=== PATIENT | male | born 1970 | race Two or more races ===

== ENCOUNTER 2018-10-28 21:58 | Emergency (ER) | payer OTHER ==
[~2018-10-28] VITALS: Ht 165.1 cm; Wt 87.5 kg
--- NOTE | 2018-10-28 22:14 | NUR ---
BIBRA. C/O "WAS FOUND PASSED OUT BY THE STREET, +ETOH" -SOB NOTED. -N/V -DIZZY. AOX4. VSS. PT VERBAL. EXPLAINED THAT HE DRANK TOO MUCH. HX SYNCOPE AND HTN.
--- NOTE | 2018-10-29 02:17 | NUR ---
Patient is resting comfortably in bed with eyes closed. Easily aroused. VSS
[2018-10-29 04:46] VITALS: BP 122/82
== END 2018-10-29 06:02 | disposition home or self-care (01) ==
LOC: ER 22:01
DX: F10.129 Alcohol abuse with intoxication, unspecified (principal); R41.82 Altered mental status, unspecified; I10 Essential (primary) hypertension; Y90.9 Presence of alcohol in blood, level not specified
CPT/HCPCS: 70450-TC; 82962-TC

== ENCOUNTER 2019-07-09 11:54 | Emergency (ER) | payer OTHER ==
[~2019-07-09] VITALS: Ht 167.6 cm; Wt 79.4 kg
--- NOTE | 2019-07-09 11:58 | NUR ---
PT BIBRA TO ER BED 14 PT WAS FOUND OUTSIDE HIS APARTMENT SLEEPING, APPEARS INTOXICATED. PER EMS PT IS SUICIDAL. PLACED ON MONITOR. VSS. AWAITING MD HUGHES.
--- NOTE | 2019-07-09 12:00 | NUR ---
DR TRAN AT BEDSIDE FOR EVAL.
[2019-07-09 12:29] LABS: BASOPHILS # (AUTO) 0.1 /CMM (0.0-0.2); EOSINOPHILS % (AUTO) 8.8 % (0.0-6.0); HEMATOCRIT 36 % (39-51); HEMOGLOBIN 11.9 g/dL (13.5-17.5); LYMPHOCYTES % (AUTO) 32.2 % (20.0-44.0); MEAN CORPUSCULAR HGB CONC 33 g/dl (31.0-36.0); MEAN CORPUSCULAR VOLUME 93 fL (80-96); MONOCYTES # (AUTO) 0.4 /CMM (0.1-1.30); NEUTROPHILS # (AUTO) 3.3 /CMM (1.8-8.9); PLATELET COUNT (AUTO) 180 /CMM (150-450); RED BLOOD CELL COUNT(AUTO) 3.85 MIL/uL (4.5-6.0); WHITE BLOOD COUNT (AUTO) 6.3 K/uL (4.3-11.0)
[2019-07-09 12:35] LABS: CALCIUM, SERUM 8.2 mg/dL (8.5-10.1); CARBON DIOXIDE 32 mmol/L (21-32); CHLORIDE 102 mmol/L (98-107); GLUCOSE 136 mg/dL (74-106); POTASSIUM 3.4 mmol/L (3.5-5.1); SODIUM SERUM 144 mmol/L (136-145); UREA NITROGEN, BLOOD 13 mg/dL (7-18)
--- NOTE | 2019-07-09 12:40 | NUR ---
UNABLE TO PROVIDE URINE SAMPLE AT THIS TIME. RUSS TRAN AWARE.
[2019-07-09 12:43] LABS: ALANINE AMINOTRANSFERASE 32 U/L (12-78); ALBUMIN 3.3 g/dL (3.4-5.0); ALCOHOL, BLOOD 382 mg/dL (0-0); ALKALINE PHOSPHATASE 157 U/L (46-116); ASPARTATE AMINOTRANSFERASE 32 U/L (15-37); BILIRUBIN,TOTAL 0.1 mg/dL (0.2-1.0); TOTAL PROTEIN, SERUM 6.7 g/dL (6.4-8.2)
[2019-07-09 12:44] LABS: ACETAMINOPHEN < 2 ug/ml (10-30); SALICYLATE < 2.8 mg/dL (2.8-20.0)
--- NOTE | 2019-07-09 17:42 | NUR ---
PT RESTING IN BED. ON MONITOR. STABLE VITALS. WILL CONTINUE TO MONITOR.
[2019-07-09 17:48] LABS: APPEARANCE,URINE Clear (CLEAR); BILIRUBIN,URINE Negative (NEGATIVE); BLOOD, URINE Negative Ery/uL (NEGATIVE); COLOR,URINE Yellow (YELLOW); KETONES,URINE Negative (NEGATIVE); LEUKOCYTE ESTERASE ,URINE Negative (NEGATIVE); NITRITE, URINE Negative (NEGATIVE); PROTEIN,URINE Negative (NEGATIVE); UGLUCOSE Negative (NEGATIVE); UROBILINOGEN,URINE 0.2 EU/dL (0.2)
--- NOTE | 2019-07-09 19:14 | NUR ---
REPORT TO FOUNDATION DRILL OPERATOR HELPER NURSE CHRISTA EDWARDS FOR MARIO.
--- NOTE | 2019-07-09 19:28 | NUR ---
ASSESSED PT ON BED AWAKE AND ALERT, NOT IN RESPIRATORY DISTRESS, V/S STABLE, KEPT RESTED AND COMFORTABLE, WILL CONTINUE TO MONITOR.
--- NOTE | 2019-07-10 00:57 | NUR ---
PT IS AWAKE ON BED, STATES HE IS STILL FEELING SUICIDAL AND WANT TO RUN THRU TRAFFIC. NOT IN RESPIRATORY DISTRESS, V/S STABLE, WILL CONTINUE TO MONITOR, FOOD PROVIDED.
--- NOTE | 2019-07-10 03:10 | NUR ---
Pt accepted to [facility] by Dr Brandt. # for report [phone]. Unit 2
--- NOTE | 2019-07-10 03:15 | NUR ---
CALLED CALL THE CAR FOR BLS TRANSPORT TO [facility]. ETA 60-90 MIN [facility]
--- NOTE | 2019-07-10 03:18 | NUR ---
REPORT GIVEN TO JERRY JUARES OF [facility] FOR [facility].
--- NOTE | 2019-07-10 05:19 | NUR ---
CALLED AMBULANCE COMPANY REQUESTING UPDATED ETA SINCE THEY ARE 30 MIN LATE, STATED THEY HAD A SLIGHT DELAY WITH THEIR PREVIOUS PT AND WILL BE ARRIVING IN ABOUT 10 MIN.
[2019-07-10 06:14] VITALS: BP 140/98
== END 2019-07-10 06:17 ==
LOC: ER 11:57
DX: F10.129 Alcohol abuse with intoxication, unspecified (principal); I10 Essential (primary) hypertension; Y90.8 Blood alcohol level of 240 mg/100 ml or more
CPT/HCPCS: 36415 ×2; 80048; 80076; 80305; 80307 ×2; 80329; 81001; 85025; 99285; G0480; 81000-TC

== ENCOUNTER 2019-09-06 13:55 | Emergency (ER) | payer OTHER ==
[~2019-09-06] VITALS: Ht 165.1 cm; Wt 81.6 kg
--- NOTE | 2019-09-06 16:45 | NUR ---
BIBS WALKED IN TO ER BED 14. AAOX4. NOT IN RESP DISTRESS. AMBUALTORY ON STEADY GAIT. CAME IN MEDICATION REFILL AND ADMITS TO DRINKING EARLIER THIS MORNING. MD WAS AT BEDSIDE FOR SAUL.
--- NOTE | 2019-09-06 16:55 | NUR ---
Patient discharged to home in stable condition. Written and verbal after care instructions given. Patient verbalizes understanding of instruction. Pt ambulatory with a steady gait. Pt left w/o sighning homeless waiver and aci.
[2019-09-06 16:57] VITALS: BP 116/88
== END 2019-09-06 17:02 | disposition home or self-care (01) ==
LOC: ER 14:01
DX: F10.129 Alcohol abuse with intoxication, unspecified (principal); I10 Essential (primary) hypertension; Z59.0 Homelessness; Y90.9 Presence of alcohol in blood, level not specified

== ENCOUNTER 2019-09-21 05:05 | Emergency (ER) | payer OTHER ==
[~2019-09-21] VITALS: Ht 165.1 cm; Wt 79.4 kg
--- NOTE | 2019-09-21 05:42 | NUR ---
PT BIBSELF C/O SUICIDAL AND HOMICIDAL IDEATION WITH PLAN TO SHOOT SELF WITH GUN. PT STATES HE CURRENTLY DOES NOT HAVE ACCESS TO GUN. PT AAOX4. CALM AND COOPERATIVE. VITAL SIGNS STABLE. RESPIRATIONS EVEN AND UNLABORED. SKIN WARM AND INTACT. AMBULATORY WITH STEADY GAIT. NO ACUTE DISTRESS NOTED AT THIS TIME. SITTER AT BEDSIDE. SUICIDE PRECAUTIONS INITIATED, PT PLACED IN GOWN AND BELONGINGS PLACED IN PATIENT LOCKER. WILL CONTINUE TO MONITOR
[2019-09-21 05:50] LABS: BASOPHILS # (AUTO) 0.2 /CMM (0.0-0.2); BASOPHILS % (AUTO) 2.2 % (0.0-2.0); EOSINOPHILS % (AUTO) 8.7 % (0.0-6.0); HEMATOCRIT 42 % (39-51); HEMOGLOBIN 13.5 g/dL (13.5-17.5); LYMPHOCYTES # (AUTO) 1.9 /CMM (0.8-4.8); LYMPHOCYTES % (AUTO) 23.6 % (20.0-44.0); MEAN CORPUSCULAR HGB CONC 33 g/dl (31.0-36.0); MEAN CORPUSCULAR VOLUME 95 fL (80-96); MONOCYTES # (AUTO) 0.7 /CMM (0.1-1.30); MONOCYTES % (AUTO) 8.6 % (2.0-12.0); NEUTROPHILS # (AUTO) 4.6 /CMM (1.8-8.9); NEUTROPHILS % (AUTO) 56.9 % (43.0-81.0); PLATELET COUNT (AUTO) 256 /CMM (150-450); RED BLOOD CELL COUNT(AUTO) 4.37 MIL/uL (4.5-6.0)
[2019-09-21 06:10] LABS: ALBUMIN 4.1 g/dL (3.4-5.0); BILIRUBIN,DIRECT 0.1 mg/dL (0.0-0.2); BILIRUBIN,TOTAL 0.5 mg/dL (0.2-1.0); CALCIUM, SERUM 8.9 mg/dL (8.5-10.1); CREATININE 0.9 mg/dL (0.6-1.3); POTASSIUM 3.7 mmol/L (3.5-5.1)
[2019-09-21 06:46] LABS: SALICYLATE 0.2 mg/dL (2.8-20.0)
[2019-09-21 07:38] LABS: APPEARANCE,URINE Slightly Cloudy (CLEAR); BILIRUBIN,URINE Negative (NEGATIVE); BLOOD, URINE Negative Ery/uL (NEGATIVE); COLOR,URINE Yellow (YELLOW); KETONES,URINE Negative (NEGATIVE); LEUKOCYTE ESTERASE ,URINE Negative (NEGATIVE); NITRITE, URINE Negative (NEGATIVE); PROTEIN,URINE 30 mg/dl (NEGATIVE); UGLUCOSE Negative (NEGATIVE); UROBILINOGEN,URINE 0.2 EU/dL (0.2)
--- NOTE | 2019-09-21 07:39 | NUR ---
PATIENT IN BED ASLEEP, EASILY AROUSABLE BY VOICE, HOOKED TO MONITOR, SITTER AT BEDSIDE FOR SAFETY, WILL CONTINUE TO MONITOR ACCORDINGLY
[2019-09-21 08:04] LABS: RBC,URINE 0-2 /HPF (0-2); WBC,URINE 0-2 /HPF (0-3)
[2019-09-21 08:05] LABS: BACTERIA,URINE Few /HPF (None Seen); SQUAMOUS EPITHELIAL CELL,UR Rare /HPF (None Seen)
--- NOTE | 2019-09-21 08:27 | NUR ---
BREAKFAST TRAY PROVIDED, TOLERATING PO WELL
--- NOTE | 2019-09-21 09:32 | NUR ---
ADARSH MORALEZ CALLED FOR EVAL
--- NOTE | 2019-09-21 10:22 | NUR ---
PATIENT IN BED AWAKE, HOOKED TO MONITOR, SITTER AT BEDSIDE FOR SAFETY, WILL CONTINUE TO MONITOR ACCORDINGLY
--- NOTE | 2019-09-21 12:42 | NUR ---
LUNCH TRAY PROVIDED, TOLERATING PO WELL.
--- NOTE | 2019-09-21 14:42 | NUR ---
PATIENT IN BED ASLEEP, EASILY AROUSABLE BY VOICE, HOOKED TO MONITOR, SITTER AT BEDSIDE FOR SAFETY, WILL CONTINUE TO MONITOR ACCORDINGLY
[2019-09-21 15:22] VITALS: BP 129/78
--- NOTE | 2019-09-21 16:02 | NUR ---
PATIENT C/O BILATERAL LOWWER EXTREMITY PAIN, MADE AWARE
[2019-09-21] MEDS ORDERED: ACETAMINOPHEN ES 500 MG TABLET PO ONE (16:30)
[2019-09-21] MEDS ORDERED: ACETAMINOPHEN ES 500 MG TABLET ONE (16:35)
--- NOTE | 2019-09-21 23:01 | NUR ---
PT ACCEPTED AT [facility]. NUMBER FOR REPORT: [phone] JAY IS [employer] VENDOR ACCEPTING DR. NUNEZ
--- NOTE | 2019-09-21 23:03 | NUR ---
Call the Car called for transport. ETA 60-90 minutes .
--- NOTE | 2019-09-21 23:06 | NUR ---
REPORT GIVEN TO JAY EDWARDS FOR CONTINUATION OF CARE.
--- NOTE | 2019-09-22 01:11 | NUR ---
[facility] AT BEDSIDE FOR TRANSPORT TO [facility].
== END 2019-09-22 01:15 ==
LOC: ER 05:05
DX: R45.851 Suicidal ideations (principal); R45.850 Homicidal ideations; I10 Essential (primary) hypertension
CPT/HCPCS: 36415; 80048; 80076; 80305; 80307; 80329; 81001; 85025; 99285; G0480; 81000-TC

== ENCOUNTER 2019-11-13 14:39 | Emergency (ER) | payer OTHER ==
[~2019-11-13] VITALS: Ht 165.1 cm; Wt 99.8 kg
--- NOTE | 2019-11-13 15:25 | NUR ---
PT SELF PRESENTS TO ED. AMBULATORY TO ER BED 15. C/O DEPRESSION W/ SUICIDAL INTENT TO "RUN IN FRONT OF A CAR." PT IS COOPERATIVE. PREVIOUS ED VISIT FOR SAME COMPLAINT. STABLE VITALS. SECURITY CALLED FOR WANDING.
--- NOTE | 2019-11-13 15:30 | NUR ---
called security for wanding
--- NOTE | 2019-11-13 15:32 | NUR ---
security at bedside and wanded the patient
--- NOTE | 2019-11-13 15:45 | NUR ---
ER PHLEB AT BEDSIDE FOR BLOOD DRAW.
[2019-11-13 15:50] LABS: APPEARANCE,URINE Clear (CLEAR); BILIRUBIN,URINE Negative (NEGATIVE); BLOOD, URINE Negative Ery/uL (NEGATIVE); COLOR,URINE Yellow (YELLOW); KETONES,URINE Trace (NEGATIVE); LEUKOCYTE ESTERASE ,URINE Negative (NEGATIVE); NITRITE, URINE Negative (NEGATIVE); PH,URINE 5.5 (5.0-8.0); PROTEIN,URINE Negative (NEGATIVE); UGLUCOSE Negative (NEGATIVE); UROBILINOGEN,URINE 0.2 EU/dL (0.2)
[2019-11-13 15:50] LABS: BASOPHILS % (AUTO) 0.9 % (0.0-2.0); EOSINOPHILS % (AUTO) 7.5 % (0.0-6.0); HEMATOCRIT 39 % (39-51); HEMOGLOBIN 12.8 g/dL (13.5-17.5); LYMPHOCYTES # (AUTO) 1.2 /CMM (0.8-4.8); LYMPHOCYTES % (AUTO) 26.2 % (20.0-44.0); MEAN CORPUSCULAR HGB CONC 33 g/dl (31.0-36.0); MEAN CORPUSCULAR VOLUME 98 fL (80-96); MONOCYTES # (AUTO) 0.5 /CMM (0.1-1.30); MONOCYTES % (AUTO) 10.6 % (2.0-12.0); NEUTROPHILS # (AUTO) 2.5 /CMM (1.8-8.9); NEUTROPHILS % (AUTO) 54.8 % (43.0-81.0); PLATELET COUNT (AUTO) 250 /CMM (150-450); RED BLOOD CELL COUNT(AUTO) 3.97 MIL/uL (4.5-6.0); WHITE BLOOD COUNT (AUTO) 4.5 K/uL (4.3-11.0)
[2019-11-13 15:59] LABS: CALCIUM, SERUM 8.7 mg/dL (8.5-10.1); CARBON DIOXIDE 29 mmol/L (21-32); CHLORIDE 104 mmol/L (98-107); CREATININE 0.9 mg/dL (0.6-1.3); GLUCOSE 93 mg/dL (74-106); POTASSIUM 3.3 mmol/L (3.5-5.1); SODIUM SERUM 142 mmol/L (136-145); UREA NITROGEN, BLOOD 12 mg/dL (7-18)
[2019-11-13 16:05] LABS: ALANINE AMINOTRANSFERASE 26 U/L (12-78); ALBUMIN 3.5 g/dL (3.4-5.0); ALCOHOL, BLOOD 209 mg/dL (0-0); ALKALINE PHOSPHATASE 172 U/L (46-116); ASPARTATE AMINOTRANSFERASE 52 U/L (15-37); BILIRUBIN,DIRECT 0.1 mg/dL (0.0-0.2); BILIRUBIN,TOTAL 0.3 mg/dL (0.2-1.0); TOTAL PROTEIN, SERUM 7.5 g/dL (6.4-8.2)
[2019-11-13 16:06] LABS: ACETAMINOPHEN < 2 ug/ml (10-30); SALICYLATE < 2.8 mg/dL (2.8-20.0)
[2019-11-13 16:18] LABS: BACTERIA,URINE Few /HPF (None Seen); RBC,URINE 0-2 /HPF (0-2); SQUAMOUS EPITHELIAL CELL,UR Few /HPF (None Seen); WBC,URINE 0-2 /HPF (0-3)
--- NOTE | 2019-11-13 16:25 | NUR ---
Sales Operations Specialist while rounding was informed that this patient would like to receive voluntary hospitalization treatment at [facility]. This SW informed Fabian at [facility]. Fabian will be holding a bed for this patient. This SW was unable to speak with the patient before end of day. This SW informed [facility] about holding a bed. SW unable to fax clinicals as they were not available before the end of this SW day.
[2019-11-13] MEDS ORDERED: POTASSIUM CHLORIDE 20 MEQ TAB.PRT.SR PO ONE ×2 (21:42→22:00)
[2019-11-14 01:06] LABS: POTASSIUM 3.5 mmol/L (3.5-5.1)
--- NOTE | 2019-11-14 01:23 | NUR ---
PATIENT IS ACCEPTED BY [facility] BY DR. CLEANING # FOR REPORT [phone] TO UNIT 2.
--- NOTE | 2019-11-14 01:28 | NUR ---
[facility].
--- NOTE | 2019-11-14 01:37 | NUR ---
[facility]TT CALL THE CAR CALLED FOR TRANSPORT. TRIP# [id number]. PENDING ETA.
--- NOTE | 2019-11-14 01:49 | NUR ---
[facility] ETA [phone]
--- NOTE | 2019-11-14 05:05 | NUR ---
[facility] CALL THE CAR CALLED FOR UPDATE. NEW ETA [phone]
--- NOTE | 2019-11-14 05:19 | NUR ---
NOTIFIED [facility] THAT ETA FOR PATIENT'S AMBULANCE PICKUP IS AT [phone]
[2019-11-14 07:00] VITALS: BP 139/76
--- NOTE | 2019-11-14 08:12 | NUR ---
PATIENT A/OX4, BREATHING EVEN AND UNLABORED, NO SOB NOTED, AMBULATORY WITH STEADY GAIT. REPORT GIVEN TO MATERIAL PREPARATION WORKER. BELONGINGS GIVEN TO EMT. PATIENT LEFT FOR [facility] IN STABLE CONDITION.
== END 2019-11-14 08:13 ==
LOC: ER 14:41
DX: R45.851 Suicidal ideations (principal); I10 Essential (primary) hypertension
CPT/HCPCS: 36415 ×2; 80048; 80076; 80305; 80307 ×2; 80329; 81001; 84132; 85025; 99285; G0480; 81000-TC

== ENCOUNTER 2019-12-10 08:08 | Emergency (ER) | payer OTHER ==
[~2019-12-10] VITALS: Ht 165.1 cm; Wt 100.2 kg
--- NOTE | 2019-12-10 08:08 | NUR ---
PT BIB SELF C/O SI "I WANT TO RUN IN FRONT OF THE CAR" PT IS AAOX4, NOT IN RESPIRATORY DISTRESS, V/S STABLE, KEPT RESTED AND COMFORTABLE. WILL CONTINUE TO MONITOR. SITTER AT BEDSIDE.
--- NOTE | 2019-12-10 08:25 | NUR ---
SEEN AND EXAMINED BY .
--- NOTE | 2019-12-10 08:29 | NUR ---
SECURITY AT BEDSIDE FOR WANDING.
--- NOTE | 2019-12-10 08:30 | NUR ---
URINE SPECIMEN COLLECTED AND SENT TO LAB.
--- NOTE | 2019-12-10 08:32 | NUR ---
ER PHLEB AT BEDSIDE FOR BLOOD DRAW.
--- NOTE | 2019-12-10 08:44 | NUR ---
SW AT BEDSIDE FOR EVAL.
[2019-12-10 09:07] LABS: APPEARANCE,URINE SL CLOUDY (CLEAR); BILIRUBIN,URINE NEGATIVE (NEGATIVE); BLOOD, URINE NEGATIVE Ery/uL (NEGATIVE); COLOR,URINE YELLOW (YELLOW); KETONES,URINE NEGATIVE (NEGATIVE); LEUKOCYTE ESTERASE ,URINE NEGATIVE (NEGATIVE); NITRITE, URINE NEGATIVE (NEGATIVE); PROTEIN,URINE TRACE mg/dl (NEGATIVE); UGLUCOSE NEGATIVE (NEGATIVE)
[2019-12-10 09:10] LABS: BASOPHILS # (AUTO) 0.1 /CMM (0.0-0.2); BASOPHILS % (AUTO) 0.8 % (0.0-2.0); HEMATOCRIT 42 % (39-51); HEMOGLOBIN 13.9 g/dL (13.5-17.5); LYMPHOCYTES # (AUTO) 1.3 /CMM (0.8-4.8); LYMPHOCYTES % (AUTO) 21.1 % (20.0-44.0); MEAN CORPUSCULAR HGB CONC 33 g/dl (31.0-36.0); MEAN CORPUSCULAR VOLUME 98 fL (80-96); MONOCYTES # (AUTO) 0.3 /CMM (0.1-1.30); MONOCYTES % (AUTO) 4.1 % (2.0-12.0); NEUTROPHILS # (AUTO) 4.5 /CMM (1.8-8.9); PLATELET COUNT (AUTO) 184 /CMM (150-450); RED BLOOD CELL COUNT(AUTO) 4.33 MIL/uL (4.5-6.0); WHITE BLOOD COUNT (AUTO) 6.4 K/uL (4.3-11.0)
[2019-12-10 09:22] LABS: CALCIUM, SERUM 8.2 mg/dL (8.5-10.1); CARBON DIOXIDE 24 mmol/L (21-32); CHLORIDE 100 mmol/L (98-107); GLUCOSE 111 mg/dL (74-106); SODIUM SERUM 138 mmol/L (136-145); UREA NITROGEN, BLOOD 10 mg/dL (7-18)
[2019-12-10 09:30] LABS: ACETAMINOPHEN < 10 ug/ml (10-30); ALANINE AMINOTRANSFERASE 47 U/L (12-78); ALBUMIN 3.6 g/dL (3.4-5.0); ALCOHOL, BLOOD 254 mg/dL (0-0); ALKALINE PHOSPHATASE 135 U/L (46-116); ASPARTATE AMINOTRANSFERASE 99 U/L (15-37); BILIRUBIN,DIRECT 0.2 mg/dL (0.0-0.2); BILIRUBIN,TOTAL 0.5 mg/dL (0.2-1.0); SALICYLATE 1.1 mg/dL (2.8-20.0); TOTAL PROTEIN, SERUM 7.6 g/dL (6.4-8.2)
[2019-12-10 09:31] LABS: BACTERIA,URINE Few /HPF (None Seen); RBC,URINE 0-1 /HPF (0-2); SQUAMOUS EPITHELIAL CELL,UR Few /HPF (None Seen); WBC,URINE 0-1 /HPF (0-3)
--- NOTE | 2019-12-10 10:55 | NUR ---
This SW faxed over patient information to [facility]
--- NOTE | 2019-12-10 11:43 | NUR ---
ANGELO FROM [facility] CALLED ACCEPTED AT [facility] ACCEPTING IS [facility] [phone] PLEASE CALL FOR REPORT.
--- NOTE | 2019-12-10 11:53 | NUR ---
CALLED [facility] [phone] WILL CALL US WITH TRANSPORT INFO AND TIME CONFIRMATION #[id number]
--- NOTE | 2019-12-10 12:11 | NUR ---
REPORT GIVEN TO JERRY KAUR FOR [facility].
--- NOTE | 2019-12-10 12:12 | NUR ---
[facility] CALLED BACK TRANSPORT [facility] WILL BE HERE @[phone]
--- NOTE | 2019-12-10 12:38 | NUR ---
This SW was contacted by Fabian from [facility]. Patient has been accepted to [facility]. Patient assigned to [facility].
--- NOTE | 2019-12-10 12:42 | NUR ---
Engineering Teacher met with the patient at bedside. Per MD note, "49-year-old male with a previous psychiatric history presents the emergency department complaining of suicidal ideation. Patient states that he wants to run in front of a car. He has no medical complaints." Patient reports being homeless and has been homeless for 10 years. Patient refused resources including hygiene, food pantries, etc. Patient reports that he was receiving GR and that it was canceled a few months back and does not know why. SW asked the patient if there had been any follow-up information, patient denied. This SW advised the patient to call [facility] to follow-up. SW asked the patient if he had contact information, patient stated that he did and he would follow-up at a later time. Patient reports 2 months of confusion and wanting "to kill myself". Patient reports feeling miserable. Per patient, he has auditory hallucinations stating "kill myself" and patient reports visual hallucinations "aliens coming out from plants and speaking to me". This SW asked the patient if they had asked him to harm himself or anyone else and patient denies this. Patient states that "they just speak to me, nothing like that. At least not yet." Patients current suicidal ideation is to run into traffic. Patient asked this SW to be referred to [facility] location. This SW to fax over clinicals regarding this patient.
--- NOTE | 2019-12-10 14:06 | NUR ---
REPORT GIVEN TO EMT FOR PT TRANSFER TO [facility].
[2019-12-10 14:27] VITALS: BP 151/85
== END 2019-12-10 14:28 ==
LOC: ER 08:12
DX: R45.851 Suicidal ideations (principal); I10 Essential (primary) hypertension; Z60.2 Problems related to living alone
CPT/HCPCS: 36415; 80048; 80076; 80305; 80307; 80329; 81001; 85025; 99285; G0480; 81000-TC

== ENCOUNTER 2020-01-11 04:32 | Emergency (ER) | payer OTHER ==
[~2020-01-11] VITALS: Ht 167.6 cm; Wt 89.8 kg
--- NOTE | 2020-01-11 04:45 | NUR ---
PT BIBSELF C/O MIDSTERNAL CHEST PAIN X2 DAYS. PT ALSO C/O DIZZINESS. DENIES SOB, HEADACHE, NAUSEA, VOMITTING. PT DIAPHORETIC ON ARRIVAL. AAOX4. RESPIRATIONS EVEN AND UNLABORED. NOTED TACHYCARDIA, MD AWARE. AMBULATORY WITH STEADY GAIT. NO ACUTE DISTRESS NOTED AT THIS TIME. PLACED ON CONTINUOUS TECHNICAL ILLUSTRATIONS MAP INKER AND PULSE OX, WILL CONTINUE TO MONITOR
--- NOTE | 2020-01-11 04:50 | NUR ---
IV INITIATED RAC 18G. LABS DRAWN FROM SITE. UNIT SECRETARY AT BEDSIDE FOR COLLECTION. IV INTACT AND PATENT, PLACED ON SALINE LOCK
--- NOTE | 2020-01-11 04:57 | NUR ---
RADIOLOGY AT BEDSIDE FOR CXR
[2020-01-11] MEDS ORDERED: ASPIRIN 325 MG TABLET ONE (05:00)
[2020-01-11] MEDS: ASPIRIN 325 MG TABLET PO ONE (05:02)
[2020-01-11 05:03] LABS: BASOPHILS % (AUTO) 0.8 % (0.0-2.0); EOSINOPHILS % (AUTO) 7.9 % (0.0-6.0); HEMATOCRIT 41 % (39-51); HEMOGLOBIN 13.6 g/dL (13.5-17.5); LYMPHOCYTES # (AUTO) 1.9 /CMM (0.8-4.8); LYMPHOCYTES % (AUTO) 37.6 % (20.0-44.0); MEAN CORPUSCULAR HGB CONC 33 g/dl (31.0-36.0); MEAN CORPUSCULAR VOLUME 97 fL (80-96); MONOCYTES # (AUTO) 0.3 /CMM (0.1-1.30); MONOCYTES % (AUTO) 6.3 % (2.0-12.0); NEUTROPHILS # (AUTO) 2.3 /CMM (1.8-8.9); NEUTROPHILS % (AUTO) 47.4 % (43.0-81.0); PLATELET COUNT (AUTO) 162 /CMM (150-450); RED BLOOD CELL COUNT(AUTO) 4.21 MIL/uL (4.5-6.0); WHITE BLOOD COUNT (AUTO) 4.9 K/uL (4.3-11.0)
[2020-01-11] MEDS: IV NS 0.9% 1,000 ML BAG IV ONE (05:04)
--- NOTE | 2020-01-11 05:14 | NUR ---
PT UNABLE TO PROVIDE URINE SAMPLE AT THIS TIME. MD MESSINA
[2020-01-11 05:19] LABS: ALANINE AMINOTRANSFERASE 31 U/L (12-78); ALBUMIN 3.8 g/dL (3.4-5.0); ALCOHOL, BLOOD 208 mg/dL (0-0); ALKALINE PHOSPHATASE 113 U/L (46-116); ASPARTATE AMINOTRANSFERASE 47 U/L (15-37); BILIRUBIN,DIRECT 0.2 mg/dL (0.0-0.2); BILIRUBIN,TOTAL 0.4 mg/dL (0.2-1.0); CALCIUM, SERUM 8.6 mg/dL (8.5-10.1); CARBON DIOXIDE 30 mmol/L (21-32); CHLORIDE 100 mmol/L (98-107); CREATININE 0.7 mg/dL (0.6-1.3); GLUCOSE 99 mg/dL (74-106); POTASSIUM 3.5 mmol/L (3.5-5.1); SODIUM SERUM 140 mmol/L (136-145); TOTAL PROTEIN, SERUM 7.5 g/dL (6.4-8.2); UREA NITROGEN, BLOOD 8 mg/dL (7-18)
[2020-01-11 05:30] LABS: ACETAMINOPHEN < 2 ug/ml (10-30)
--- NOTE | 2020-01-11 05:39 | NUR ---
PT UNABLE TO PROVIDE URINE SAMPLE AT THIS TIME. MD MESSINA
--- NOTE | 2020-01-11 06:10 | NUR ---
URINE COLLECTED AND SENT TO LAB
[2020-01-11 06:46] LABS: APPEARANCE,URINE CLEAR (CLEAR); BILIRUBIN,URINE NEGATIVE (NEGATIVE); BLOOD, URINE NEGATIVE Ery/uL (NEGATIVE); COLOR,URINE YELLOW (YELLOW); KETONES,URINE NEGATIVE (NEGATIVE); LEUKOCYTE ESTERASE ,URINE NEGATIVE (NEGATIVE); NITRITE, URINE NEGATIVE (NEGATIVE); PROTEIN,URINE NEGATIVE (NEGATIVE); UGLUCOSE NEGATIVE (NEGATIVE)
--- NOTE | 2020-01-11 07:05 | NUR ---
PT RESTING COMFORTABLY IN BED. VITAL SIGNS STABLE. WILL CONTINUE TO MONITOR
[2020-01-11 07:09] LABS: BACTERIA,URINE None seen /HPF (None Seen); RBC,URINE 0-2 /HPF (0-2); SQUAMOUS EPITHELIAL CELL,UR Rare /HPF (None Seen); WBC,URINE 0-2 /HPF (0-3)
--- NOTE | 2020-01-11 09:58 | NUR ---
Patient requested a new set of clothes. Patient was provided with a change of clothes including a jacket.
--- NOTE | 2020-01-11 10:32 | NUR ---
CALLED [employer] ARCHITECT ON-CALL ART, WILL BE HERE SHORTLY
--- NOTE | 2020-01-11 10:40 | NUR ---
Patient provide phone number for Deepthi (pt's daughter) . Patient reports that his sister Angelic also lives in the home so if Deepthi doesn't answer Angelic can. SW to re-attempt to speak to Deepthi or Angelic for patient pick-up.
--- NOTE | 2020-01-11 11:45 | NUR ---
SW attempted to speak to Deepthi (pt's daughter) and Angelic (pt's sister) at social media campaign manager left voicemail with call back number.
--- NOTE | 2020-01-11 12:00 | NUR ---
PATIENT SEEN AND EVALUATED BY ART. PATIENT DENIES SI/HI. NO DISTRESS NOTED.
--- NOTE | 2020-01-11 12:31 | NUR ---
PATIENT A/OX4, BREATHING EVEN AND UNLABORED, NO SOB NOTED, NEEDS ATTENDED, KEPT COMFORTABLE. AMBULATORY WITH STEADY GAIT. PT STS HE'S GOING HOME TO HIS DAUGHTER. IV removed. Catheter intact and site benign. Pressure and 4x4 applied to site. No bleeding noted.Patient discharged to home in stable condition. Written and verbal after care instructions given. Patient verbalizes understanding of instruction.
[2020-01-11 12:33] VITALS: BP 116/67
--- NOTE | 2020-01-11 17:00 | NUR ---
Patient is a 49-year old male. Patient is alert and oriented x4. Patient appears to be unkept. Patient was sweating and shaking to what can appear as withdrawal symptoms. Patient kept constant eye contact with this SW. Patient is primarily Romanian speaking and this SW conducted the assessment in Romanian. Per MD note, patient initially presented to [facility] ED for chest pain with compliant of suicidal ideation. Patient reported that he came initially to the ED because of chest pain. Patient reports that he is feeling better and would like to go to his daughter Dimitry gan . Patient also informed this SW that his sister Angelic also lives in the home and SW can speak to Angelic. Per patient, he admits to alcohol, crystal meth, and marijuana use. Patient reports that at this time he denies suicidal ideation. Patient reports that it is because of the amount of alcohol he drank that caused him to have the suicidal ideations. Patient does not report any mental illness. Patient denies auditory and visual hallucinations. Patient denies homicidal ideation. Patient does admit to previous voluntary psychiatric treatment and reports that the most recent psychiatric hospitalization was approximately a month ago, however patient does not remember exactly when. Patient admits that his alcohol use is a problem and that he would like resources regarding treatment to be explained to his daughter. Patient does report to be homeless but states that his daughter allows him to enter his home when necessary. Patient asked this SW for a set of warmer clothes as weather is changing. SW to provide patient with a change of clothes. SW spoke with Dr. Francois and Dr. Kelly about patient denying suicidal ideation and admitting that his current suicidal ideation thought was brought on by the alcohol he consumed. Dr. Francois request aviation electrician to evaluate the patient. FLORENTINO spoke to Shahla Zimmerman, HAIR ASSISTANT, DSW, [employer] regarding patient and Dr. Harris request. Per Shahla, aviation electrician should be called. ROTARY DRILLER HELPERJERRY Franklin expressed understanding and stated she would call aviation electrician on-call. SW attempted to speak with Deepthi . Dimitry phone line was busy, and this SW could not leave a voicemail. SW informed MELYSSA Franklin that patient provided consent to speak to daughter Deepthi and/or his sister Angelic who also lives in the same home. ROTARY DRILLER HELPER Rosavae also attempt to follow-up with patients daughter and patients sister.
== END 2020-01-11 12:33 | disposition home or self-care (01) ==
LOC: ER 04:34
DX: R45.851 Suicidal ideations (principal); F32.9 Major depressive disorder, single episode, unspecified; F10.129 Alcohol abuse with intoxication, unspecified; Y90.7 Blood alcohol level of 200-239 mg/100 ml; Z59.0 Homelessness; R07.9 Chest pain, unspecified; I10 Essential (primary) hypertension; Z20.828 Contact with and (suspected) exposure to other viral communicable diseases; R00.0 Tachycardia, unspecified; R61 Generalized hyperhidrosis
CPT/HCPCS: 36415; 71045; 80048; 80076; 80299; 80307 ×2; 80320; 81001; 82962; 84484 ×2; 85025; 87426; 93005; 96360; 99285; C9803; J7030; 81000-TC; G0480

== ENCOUNTER 2020-07-07 13:55 | Emergency (ER) | payer OTHER ==
[~2020-07-07] VITALS: Ht 167.6 cm; Wt 81.6 kg
--- NOTE | 2020-07-07 14:02 | NUR ---
called to triage,no answer
--- NOTE | 2020-07-07 14:15 | NUR ---
PT SELF PRESENTS TO ED AMBULATORY W/ STEADY GAIT C/O DEPRESSION W/ SI. PLAN IS TO RUN THROUGH TRAFFIC. PT IS COOPERATIVE TO STAFF. GOWNED. STABLE VITALS. AWAITNG MD HUGHES.
--- NOTE | 2020-07-07 14:20 | NUR ---
DR CORREA AT BEDSIDE FOR EVAL.
--- NOTE | 2020-07-07 14:30 | NUR ---
[employer] LAYUP LINE CORE LAYER AT BEDSIDE FOR BLOOD DRAWN.
[2020-07-07 14:36] LABS: BASOPHILS # (AUTO) 0.1 /CMM (0.0-0.2); BASOPHILS % (AUTO) 0.8 % (0.0-2.0); EOSINOPHILS % (AUTO) 6.9 % (0.0-6.0); HEMATOCRIT 43 % (39-51); HEMOGLOBIN 14.3 g/dL (13.5-17.5); LYMPHOCYTES # (AUTO) 1.3 /CMM (0.8-4.8); LYMPHOCYTES % (AUTO) 21.3 % (20.0-44.0); MEAN CORPUSCULAR HGB CONC 33 g/dl (31.0-36.0); MEAN CORPUSCULAR VOLUME 96 fL (80-96); MONOCYTES # (AUTO) 0.6 /CMM (0.1-1.30); MONOCYTES % (AUTO) 9.7 % (2.0-12.0); NEUTROPHILS # (AUTO) 3.7 /CMM (1.8-8.9); NEUTROPHILS % (AUTO) 61.3 % (43.0-81.0); PLATELET COUNT (AUTO) 197 /CMM (150-450); RED BLOOD CELL COUNT(AUTO) 4.51 MIL/uL (4.5-6.0); WHITE BLOOD COUNT (AUTO) 6.1 K/uL (4.3-11.0)
[2020-07-07 14:49] LABS: ALANINE AMINOTRANSFERASE 46 U/L (12-78); ALBUMIN 3.7 g/dL (3.4-5.0); ALCOHOL, BLOOD < 3 mg/dL (0-0); ALKALINE PHOSPHATASE 113 U/L (46-116); BILIRUBIN,DIRECT 0.3 mg/dL (0.0-0.2); BILIRUBIN,TOTAL 0.9 mg/dL (0.2-1.0); CALCIUM, SERUM 9.2 mg/dL (8.5-10.1); CARBON DIOXIDE 30 mmol/L (21-32); CHLORIDE 98 mmol/L (98-107); CREATININE 0.9 mg/dL (0.6-1.3); GLUCOSE 102 mg/dL (74-106); POTASSIUM 3.9 mmol/L (3.5-5.1); SODIUM SERUM 136 mmol/L (136-145); TOTAL PROTEIN, SERUM 7.6 g/dL (6.4-8.2); UREA NITROGEN, BLOOD 16 mg/dL (7-18)
[2020-07-07 14:50] LABS: ACETAMINOPHEN < 10 ug/ml (10-30)
[2020-07-07 15:24] LABS: ASPARTATE AMINOTRANSFERASE 61 U/L (15-37)
[2020-07-07 15:33] LABS: BILIRUBIN,URINE SMALL (NEGATIVE); COLOR,URINE YELLOW (YELLOW); LEUKOCYTE ESTERASE ,URINE Negative (NEGATIVE); NITRITE, URINE Negative (NEGATIVE); PH,URINE 5.5 (5.0-8.0); PROTEIN,URINE Negative (NEGATIVE); UGLUCOSE Negative (NEGATIVE)
[2020-07-07 15:43] LABS: MUCUS,URINE Rare /LPF (None Seen); RBC,URINE 0-2 /HPF (0-2); SQUAMOUS EPITHELIAL CELL,UR 0-2 /HPF (None Seen); WBC,URINE 0-2 /HPF (0-3)
[2020-07-07 15:44] LABS: BACTERIA,URINE Few /HPF (None Seen)
--- NOTE | 2020-07-07 18:45 | NUR ---
CALL FROM ERLINDA,ACCEPTED AT [facility] BY DR SINGH,REPORT TO [phone] UNIT 2
--- NOTE | 2020-07-07 18:48 | NUR ---
[facility] FOR BLS, TO [facility] AT 2030. PRIMARY NURSE AWARE.
--- NOTE | 2020-07-07 18:56 | NUR ---
REPORT GIVEN TO SHANTELLE AT [facility].
--- NOTE | 2020-07-07 21:04 | NUR ---
REPORT GIVEN TO [facility] FOR TRANSPORTATION [facility]
[2020-07-07 21:10] VITALS: BP 111/62
== END 2020-07-07 21:13 ==
LOC: ER 14:01
DX: R45.851 Suicidal ideations (principal); F15.10 Other stimulant abuse, uncomplicated; Z91.14 Patient's other noncompliance with medication regimen; I10 Essential (primary) hypertension; F20.9 Schizophrenia, unspecified; F31.9 Bipolar disorder, unspecified; Z20.822 Contact with and (suspected) exposure to COVID-19
CPT/HCPCS: 36415; 80048; 80076; 80299; 80307; 80320; 81001; 85025; 87426; 99285; C9803; G0480

== ENCOUNTER 2020-07-17 08:00 | Emergency (ER) | payer OTHER ==
[~2020-07-17] VITALS: Ht 165.1 cm; Wt 86.2 kg
--- NOTE | 2020-07-17 08:05 | NUR ---
CALLED IN ED WAITING ROOM, NO RESPONSE.
--- NOTE | 2020-07-17 08:26 | NUR ---
PT SELF PRESENTS TO ED. AMBULATORY W/ STEADY GAIT C/O BEING DEPRESSED W/ SUICIDAL THOUGHTS AND PLAN TO "HANG SELF" PT ADMITS TO ETOH AND METH USE YESTERDAY. TACHY AND HYPERTENSIVE PASTOR. STATES HAS HYPERTENSION BUT IS NON COMPLIANT W/ MEDS AT THIS TIME. PT ROOMED, GOWNED AND BELONGINGS TO SAFE LOCKER. SECURITY CALLED FOR WANDING. SITTER AT BEDSIDE. AWAITING MD HUGHES.
--- NOTE | 2020-07-17 08:33 | NUR ---
BIBS FOR C/O DEPRESSED, SUICIDAL IDEATION W/ PLAN TO "HANG SELF". DENIES PAIN OR SOB. RESPIRATIONS REGULAR, UNLABORED, DENIES HI. SITTER AT THE BEDSIDE, WILL CONTINUE TO MONITOR.
--- NOTE | 2020-07-17 08:34 | NUR ---
DR TRAN AT BEDSIDE FOR EVAL.
[2020-07-17 09:00] LABS: BASOPHILS # (AUTO) 0.1 /CMM (0.0-0.2); BASOPHILS % (AUTO) 1.4 % (0.0-2.0); EOSINOPHILS % (AUTO) 7.3 % (0.0-6.0); HEMATOCRIT 39 % (39-51); HEMOGLOBIN 12.8 g/dL (13.5-17.5); LYMPHOCYTES # (AUTO) 1.3 /CMM (0.8-4.8); LYMPHOCYTES % (AUTO) 20.8 % (20.0-44.0); MEAN CORPUSCULAR HGB CONC 33 g/dl (31.0-36.0); MEAN CORPUSCULAR VOLUME 95 fL (80-96); MONOCYTES # (AUTO) 0.6 /CMM (0.1-1.30); MONOCYTES % (AUTO) 9.3 % (2.0-12.0); NEUTROPHILS # (AUTO) 3.8 /CMM (1.8-8.9); NEUTROPHILS % (AUTO) 61.2 % (43.0-81.0); PLATELET COUNT (AUTO) 219 /CMM (150-450); RED BLOOD CELL COUNT(AUTO) 4.09 MIL/uL (4.5-6.0); WHITE BLOOD COUNT (AUTO) 6.3 K/uL (4.3-11.0)
[2020-07-17 09:15] LABS: CALCIUM, SERUM 9.1 mg/dL (8.5-10.1); CARBON DIOXIDE 25 mmol/L (21-32); CHLORIDE 104 mmol/L (98-107); CREATININE 0.7 mg/dL (0.6-1.3); GLUCOSE 90 mg/dL (74-106); POTASSIUM 3.8 mmol/L (3.5-5.1); SODIUM SERUM 141 mmol/L (136-145); UREA NITROGEN, BLOOD 14 mg/dL (7-18)
[2020-07-17 09:20] LABS: ALANINE AMINOTRANSFERASE 53 U/L (12-78); ALBUMIN 3.6 g/dL (3.4-5.0); ALCOHOL, BLOOD < 3 mg/dL (0-0); ALKALINE PHOSPHATASE 121 U/L (46-116); ASPARTATE AMINOTRANSFERASE 56 U/L (15-37); BILIRUBIN,DIRECT 0.1 mg/dL (0.0-0.2); BILIRUBIN,TOTAL 0.5 mg/dL (0.2-1.0); TOTAL PROTEIN, SERUM 7.2 g/dL (6.4-8.2)
[2020-07-17 09:24] LABS: BILIRUBIN,URINE SMALL (NEGATIVE); COLOR,URINE YELLOW (YELLOW); LEUKOCYTE ESTERASE ,URINE Negative (NEGATIVE); NITRITE, URINE Negative (NEGATIVE); PROTEIN,URINE Negative (NEGATIVE); UGLUCOSE Negative (NEGATIVE)
[2020-07-17] MEDS ORDERED: ATENOLOL 50 MG TABLET ONE (09:27)
[2020-07-17] MEDS ORDERED: ATENOLOL 50 MG TABLET PO ONE (09:30)
--- NOTE | 2020-07-17 09:31 | NUR ---
COVID SWAB SENT TO LAB.
[2020-07-17 09:38] LABS: BACTERIA,URINE Rare /HPF (None Seen); RBC,URINE 0-2 /HPF (0-2); SQUAMOUS EPITHELIAL CELL,UR Rare /HPF (None Seen); WBC,URINE 0-2 /HPF (0-3)
[2020-07-17 09:40] LABS: ACETAMINOPHEN 0 ug/ml (10-30)
--- NOTE | 2020-07-17 10:25 | NUR ---
SS Consult: SS Consult requested for SI, homelessness & DRUG/ETOH use. The pt. is a 50-year old Male seeking medical attention for SI. FLORENTINO met with pt. bedside. Pt. is alert & oriented x 4 and makes appropriate eye contact. The pt. appears unkempt with depressed mood and full affect. SW assessed for suicide. Pt. stated he has been having contact thoughts of suicide for the past 2 days with a plan to overdose or drugs. Pt. stated, I dont have anything to live for. Pt. stated he has auditory and visual hallucinations on and off. Pt. denies HI. SW offered pt. voluntary placement in a psychiatric hospital for Treatment and pt. is agreeable. SW assessed for drugs/ETOH. Pt. stated that his drink of choice is Vodka and he drinks as often as he can. Pt. also states that he has been using Amphetamine on a daily basis for the last 2 weeks. Pt. also states he uses Cannabinoids often. SW completed drug/ETOH intervention. Pt. does not believe that the alcohol/ drug use is a problem for him. Pt. states he is not interested in substance abuse treatment at this time. SW provided pt. with addiction resources. Pt. accepted them. SW explored pt.s living situation. Pt. stated he has been experiencing homelessness for the past 6 years. Pt. stated he has recently been sleeping outside of [facility] on [address]. SW explored pt.s support system. Pt. stated he is and his 2 daughters reside in [facility]. Pt. stated his father lives in [place] and mother in [place] but he is not in communication with them. Pt. stated he received food stamps ad [employer]. Plan: SW faxed clinicals to [facility] [[facility] [place] [address] FAX:[phone]] for inpatient psychiatric treatment. Pt. signed homeless waiver and it was placed in the pt.s chart. SW provided pt. with the following mental health, addiction and homeless resources and pt. accepted them:
--- NOTE | 2020-07-17 11:54 | NUR ---
COVID NEGATIVE PER LAB
--- NOTE | 2020-07-17 12:10 | NUR ---
FAXED PAPERS TO [facility]
--- NOTE | 2020-07-17 15:00 | NUR ---
REPORT GIVEN TO SOHAM RIGGS, [facility]
--- NOTE | 2020-07-17 15:22 | NUR ---
CALLED TRANSPORT [facility] ETA IS 1800 PER LITZY
--- NOTE | 2020-07-17 15:24 | NUR ---
CALLED TRANSPORT [facility] ETA 60MINS PER DONELL
--- NOTE | 2020-07-17 16:26 | NUR ---
Patient discharged in stable condition. Written and verbal after care instructions given. Patient verbalizes understanding of instruction. The patient is transfered in stable condition to [facility] via arranged transpo.
[2020-07-17 16:27] VITALS: BP 134/82
== END 2020-07-17 16:30 ==
LOC: ER 08:01
DX: F32.9 Major depressive disorder, single episode, unspecified (principal); R45.851 Suicidal ideations; F15.10 Other stimulant abuse, uncomplicated; Z20.822 Contact with and (suspected) exposure to COVID-19; I10 Essential (primary) hypertension
CPT/HCPCS: 36415; 80048; 80076; 80299; 80307; 80320; 81001; 85025; 87426; 99285; C9803; G0480

== ENCOUNTER 2020-08-12 11:10 | Emergency (ER) | payer OTHER ==
[~2020-08-12] VITALS: Ht 170.2 cm; Wt 95.3 kg
--- NOTE | 2020-08-12 11:10 | NUR ---
PT BIB SELF C/O SUICIDAL IDEATION NO SPECIFIC PLAN. +ETOH. PT IS AAOX4, NOT IN RESPIRATORY DISTRESS, V/S STABLE, KEPT RESTED AND COMFORTABLE. SITTER AT BEDSIDE. WILL CONTINUE TO MONITOR.
--- NOTE | 2020-08-12 11:20 | NUR ---
URINE SPECIMEN COLLECTED AND SENT TO LAB.
[2020-08-12 11:33] LABS: BASOPHILS # (AUTO) 0.1 /CMM (0.0-0.2); BASOPHILS % (AUTO) 0.9 % (0.0-2.0); EOSINOPHILS % (AUTO) 5.4 % (0.0-6.0); HEMATOCRIT 37 % (39-51); HEMOGLOBIN 12.5 g/dL (13.5-17.5); LYMPHOCYTES # (AUTO) 2.3 /CMM (0.8-4.8); MEAN CORPUSCULAR HGB CONC 34 g/dl (31.0-36.0); MEAN CORPUSCULAR VOLUME 93 fL (80-96); MONOCYTES # (AUTO) 0.4 /CMM (0.1-1.30); MONOCYTES % (AUTO) 5.2 % (2.0-12.0); NEUTROPHILS # (AUTO) 4.1 /CMM (1.8-8.9); NEUTROPHILS % (AUTO) 56.5 % (43.0-81.0); PLATELET COUNT (AUTO) 230 /CMM (150-450); WHITE BLOOD COUNT (AUTO) 7.2 K/uL (4.3-11.0)
[2020-08-12 11:41] LABS: CALCIUM, SERUM 8.6 mg/dL (8.5-10.1); CREATININE 0.7 mg/dL (0.6-1.3); POTASSIUM 3.8 mmol/L (3.5-5.1)
[2020-08-12 11:42] LABS: BILIRUBIN,URINE Negative (NEGATIVE); COLOR,URINE YELLOW (YELLOW); LEUKOCYTE ESTERASE ,URINE Negative (NEGATIVE); NITRITE, URINE Negative (NEGATIVE); PH,URINE 6.5 (5.0-8.0); PROTEIN,URINE Negative (NEGATIVE); UGLUCOSE Negative (NEGATIVE); UROBILINOGEN,URINE 0.2 EU/dL (0.2)
[2020-08-12 11:48] LABS: ALBUMIN 3.8 g/dL (3.4-5.0); BILIRUBIN,DIRECT 0.1 mg/dL (0.0-0.2); BILIRUBIN,TOTAL 0.3 mg/dL (0.2-1.0); TOTAL PROTEIN, SERUM 7.5 g/dL (6.4-8.2)
--- NOTE | 2020-08-12 15:40 | NUR ---
SPRAY GUN REPAIRER HELPER AT BEDSIDE FOR EVAL.
--- NOTE | 2020-08-12 16:20 | NUR ---
SS Consult: SS Consult requested for SI w /plan, ETOH & homelessness. The pt. is a 50 year old male. SW met with pt. bedside & pt is A&O X 2. Per pt. he is depressed because "I have nothing to live for". Pt. stated he has SI with plan to jump in front of a car. Pt. stated that he has been homeless for about 5 years and is an also alcoholic (drinks vodka & beer as much as he can afford). Patient states he had a & children who are no longer in his life. Pt.'s catalina is depressed. Pt. stated he has radha diagnosed with Schizophrenia in the past. Patient states he is currently experiencing auditory hallucinations that tell him to hurt others. Patient states he is currently experiencing visual hallucination of the devil. Pt. states he has no psychiatrist or therapist and is not on psychotropic medications. SW offered pt. voluntary placement in a psych facility for treatment & patient agreed. Plan: SW referred pt. to [facility] [[address] [place] [address] ] for inpatient psychiatric treatment. SW discussed D/C plna with who is also in agreement. Patient signed homeless waiver & it was placed in the pt.'s chart. SW provided pt. with the following homeless resources, addiction resources & mental health resources & pt. accepted them: Substance Abuse resources provided included: [facility] Substance Abuse Self-Helpline ([facility]) ; CRI -HELP [address] [facility]. [place] [address] ; [facility] [address] [facility] [address] ; [facility] [address] [facility] [address] ; [facility] [address] [facility] [address] ; [facility] [address] [facility] [address] ; [facility] [address] [facility] [address] ; [facility] Substance Abuse Helpline([facility] ; [facility] ; [facility] [place]; [facility] [place]; [facility] [place]; [facility] [place]; [facility] [place]; [facility]; [facility] [place]; [facility], [facility] Gaurav [place]; Alcoholics Anonymous -SFV; Fd-Nvhy-Lxxzoui ; Marijuana Anonymous -SFV; Narcotics Anonymous www.na.org; Year-round shelters: [facility] [place] [address] [place], [place] [id number] ; [facility] [place] [address] [place] [address]; [place] [facility] [id number] [facility] [address] Winter Shelters: [facility] Provider: [place] Address: [address] [place], [address] # of Beds: 47 Population Served: [facility] 6 | [facility] Araceli Anglin [place] Provider: [facility] Last Address: [address], [address] # of Beds: 66 Population Served: [facility] CrowdChat [place] Provider: First to Serve Address: [address], [address] # of Beds: 56 Population Served: [facility] Alfonzo [place] Provider: /[facility]. [facility] Address: [address] [facility], [address] # of Beds: 49 Population Served: [facility] 8 | [facility] Provider: First to Serve Address: [address] [facility]. Tracy Dillon # of Beds: 37 Population Served: Cathy Hygiene: [facility]: [address] [address] Mike. [place] ; [facility] [address] [facility] [place] ; [facility] [address] [place] . Food Resources: [place] [facility] at [facility]- [address] [place]; Meet Each Need with Dignity ([facility]) [address] [address] [place]; [facility] Food Pantry 4197 [facility]; [facility] 9019 [facility]. Mental Health resources provided: [facility] [address] [place], [place] [id number] ; [facility] [address] [facility] [address], [place], [place] [id number] ; Renwick Barry [facility] [address] [address], [place] [id number] ; [facility] [address] [place], [place] [address] Healthcare Clinics: [facility] [address], [address] [place]. [place] ; [facility] [address] [facility] [facility] [address] [place] [address]; [facility] [place] [address] [facility]. [place] [phone] Counseling--Outpatient [facility] [address] [facility] [facility], [facility] [place], [place] [phone] (Specializes in in-depth psychotherapy for emotional distress: anxiety, depression, interpersonal conflicts, life transitions, childhood abuse) [facility] [address] [place] [address] (Assist with solving problem marital difficulties, separation & divorce, aging parents, & grief, chronic & terminal illness) [facility] [address] [place] [address] (Deal with loss & grief, anxiety, marital difficulties) Homebound/Mental Health Services [address] [facility], [address] [place], [place] [address] (Provide in-home mental services to people who are incapable of leaving their homes) [facility] of the Elderly Senior Service/Resource Center [address] [place] [address] [facility] [address] [place] [address] PSYCHIATRIC OUTPATIENT SERVICES [facility] Partial Hospitalization and Intensive Outpatient Program (Managed Care and [place] Only)[address] [facility]. [facility] [phone] [facility] Partial Hospitalization and Outpatient [id number] [facility]. [address] [place], [place] [phone] [facility] Partial Hospitalization and Outpatient Fthuanp[address] [facility]. [place], [place] [phone] [facility] Center Dqw31528 [facility]. [address] [place], [place] [phone] [facility] Micah Partial Hospitalization and Outpatient Clrpnoi15139 Emelita [facility] Andrew ObrienWEST [place], [phone]
--- NOTE | 2020-08-12 16:21 | NUR ---
FLORENTINO faxed Clinicals to [facility] fax: [phone] ATTN: Fabian for psychiatric stabilization.
--- NOTE | 2020-08-12 18:12 | NUR ---
PT STATED HE IS NOT SUICIDAL ANYMORE AND WANTS TO BE DISCHARGED. AWARE.
--- NOTE | 2020-08-12 18:20 | NUR ---
PT ABLE TO AMBULATE WITHOUT ASSISTANCE. AWARE.
--- NOTE | 2020-08-12 18:26 | NUR ---
Patient given written and verbal discharge instructions. Patient verbalizes understanding of instructions. Patient is ambulatory with steady gait. Refuses offer of [facility] placement. Patient given list of available shelters in surrounding area.
[2020-08-12 18:27] VITALS: BP 129/84
== END 2020-08-12 18:28 | disposition home or self-care (01) ==
LOC: ER 11:10
DX: F10.129 Alcohol abuse with intoxication, unspecified (principal); Y90.8 Blood alcohol level of 240 mg/100 ml or more; F32.9 Major depressive disorder, single episode, unspecified; R45.851 Suicidal ideations; I10 Essential (primary) hypertension
CPT/HCPCS: 36415; 80048; 80076; 80299; 80307; 80320; 81003; 85025; 87426; 99285; C9803; G0480

== ENCOUNTER 2020-08-16 10:06 | Emergency (ER) | payer OTHER ==
[~2020-08-16] VITALS: Ht 165.1 cm; Wt 101.2 kg
--- NOTE | 2020-08-16 10:06 | NUR ---
PT BIB SELF C/O DEPRESSION AND MED CLEARANCE GOING TO [facility]. PT IS AAOX4, NOT IN RESPIRATORY DISTRESS, V/S STABLE, KEPT RESTED AND COMFORTABLE. WILL CONTINUE TO MONITOR.
--- NOTE | 2020-08-16 10:20 | NUR ---
URINE SPECIMEN COLLECTED AND SENT TO LAB.
--- NOTE | 2020-08-16 11:39 | NUR ---
ER PHLEB AT BEDSIDE FOR BLOOD DRAW.
--- NOTE | 2020-08-16 11:47 | NUR ---
COVID SWAB DONE SND SENT TO LAB
[2020-08-16 11:50] LABS: BILIRUBIN,URINE Negative (NEGATIVE); COLOR,URINE YELLOW (YELLOW); LEUKOCYTE ESTERASE ,URINE Negative (NEGATIVE); NITRITE, URINE Negative (NEGATIVE); PROTEIN,URINE 30 mg/dl (NEGATIVE); UGLUCOSE Negative (NEGATIVE)
[2020-08-16 11:50] LABS: BASOPHILS % (AUTO) 0.8 % (0.0-2.0); EOSINOPHILS % (AUTO) 1.1 % (0.0-6.0); HEMATOCRIT 39 % (39-51); HEMOGLOBIN 12.8 g/dL (13.5-17.5); LYMPHOCYTES % (AUTO) 20.8 % (20.0-44.0); MEAN CORPUSCULAR HGB CONC 33 g/dl (31.0-36.0); MEAN CORPUSCULAR VOLUME 94 fL (80-96); MONOCYTES # (AUTO) 0.2 /CMM (0.1-1.30); MONOCYTES % (AUTO) 4.9 % (2.0-12.0); NEUTROPHILS # (AUTO) 3.6 /CMM (1.8-8.9); NEUTROPHILS % (AUTO) 72.4 % (43.0-81.0); PLATELET COUNT (AUTO) 176 /CMM (150-450); RED BLOOD CELL COUNT(AUTO) 4.15 MIL/uL (4.5-6.0)
[2020-08-16 11:53] LABS: BACTERIA,URINE Rare /HPF (None Seen); RBC,URINE NONE SEEN /HPF (0-2); SQUAMOUS EPITHELIAL CELL,UR Few /HPF (None Seen); WBC,URINE NONE SEEN /HPF (0-3)
[2020-08-16 12:03] LABS: ACETAMINOPHEN < 2 ug/ml (10-30); ALANINE AMINOTRANSFERASE 38 U/L (12-78); ALBUMIN 3.9 g/dL (3.4-5.0); ALCOHOL, BLOOD 128 mg/dL (0-0); ALKALINE PHOSPHATASE 131 U/L (46-116); ASPARTATE AMINOTRANSFERASE 74 U/L (15-37); BILIRUBIN,DIRECT 0.3 mg/dL (0.0-0.2); BILIRUBIN,TOTAL 0.8 mg/dL (0.2-1.0); CALCIUM, SERUM 8.9 mg/dL (8.5-10.1); CARBON DIOXIDE 28 mmol/L (21-32); CHLORIDE 95 mmol/L (98-107); CREATININE 0.7 mg/dL (0.6-1.3); GLUCOSE 87 mg/dL (74-106); POTASSIUM 3.8 mmol/L (3.5-5.1); SODIUM SERUM 135 mmol/L (136-145); TOTAL PROTEIN, SERUM 7.9 g/dL (6.4-8.2); UREA NITROGEN, BLOOD 9 mg/dL (7-18)
--- NOTE | 2020-08-16 19:50 | NUR ---
DIRECTOR OF CATH LAB, [facility] EVALUATING PATIENT
--- NOTE | 2020-08-16 20:02 | NUR ---
PER DR. GAINES PT MEDICALLY CLEARED FOR DISCHARGE. RESOURCES PROVIDED TO PATIENT PRIOR TO DISCHARGE. PT AMBULATORY WITH STEADY GAIT. CLOTHING ADEQUATE UPON DISCHARGE
[2020-08-16 20:13] VITALS: BP 138/79
== END 2020-08-16 20:13 | disposition home or self-care (01) ==
LOC: ER 10:07
DX: F32.9 Major depressive disorder, single episode, unspecified (principal); Z59.0 Homelessness; I10 Essential (primary) hypertension; Z20.822 Contact with and (suspected) exposure to COVID-19
CPT/HCPCS: 36415; 80048; 80076; 80143; 80307; 80320; 81001; 85025; 87426; 99284; C9803; G0480

== ENCOUNTER 2023-10-29 21:23 | Emergency (ER) | payer OTHER ==
[~2023-10-29] VITALS: Ht 165.1 cm; Wt 107.0 kg
[2023-10-29 21:54] LABS: BASOPHILS # (AUTO) 0.1 K/uL (0.0-0.2); BASOPHILS % (AUTO) 0.8 % (0.0-2.0); EOSINOPHILS # (AUTO) 0.5 K/uL (0.0-0.7); EOSINOPHILS % (AUTO) 7.3 % (0.0-6.0); HEMATOCRIT 42 % (39-51); HEMOGLOBIN 13.5 g/dL (13.5-17.5); LYMPHOCYTES # (AUTO) 2.8 K/uL (0.8-4.8); LYMPHOCYTES % (AUTO) 37.6 % (20.0-44.0); MEAN CORPUSCULAR HEMOGLOBIN 31 PG (26.0-33.0); MEAN CORPUSCULAR HGB CONC 32 g/dl (31.0-36.0); MEAN CORPUSCULAR VOLUME 95 fL (80-96); MONOCYTES # (AUTO) 0.3 K/uL (0.1-1.30); MONOCYTES % (AUTO) 4.4 % (2.0-12.0); NEUTROPHILS # (AUTO) 3.7 K/uL (1.8-8.9); NEUTROPHILS % (AUTO) 49.9 % (43.0-81.0); PLATELET COUNT (AUTO) 301 K/uL (150-450); RED BLOOD CELL COUNT(AUTO) 4.44 MIL/uL (4.5-6.0); RED CELL DISTRIBUTION WIDTH 16.7 % (11.5-15.0); WHITE BLOOD COUNT (AUTO) 7.4 K/uL (4.3-11.0)
[2023-10-29] MEDS ORDERED: diphenhydrAMINE HCL 50 MG/ML VIAL ONE (22:07)
[2023-10-29] MEDS ORDERED: HALOPERIDOL LACTATE INJ 5 MG/ML VIAL ONE (22:07)
[2023-10-29] MEDS ORDERED: LORAZEPAM INJ 2 MG/ML VIAL ONE (22:08)
[2023-10-29] MEDS: diphenhydrAMINE HCL 50 MG/ML VIAL IM ONE (22:15)
[2023-10-29] MEDS: LORAZEPAM INJ 2 MG/ML VIAL IM ONE (22:15)
[2023-10-29] MEDS: HALOPERIDOL LACTATE INJ 5 MG/ML VIAL IM ONE (22:15)
[2023-10-29 22:48] LABS: CALCIUM, SERUM 8.4 mg/dL (8.5-10.1); CARBON DIOXIDE 20 mmol/L (21-32); CHLORIDE 106 mmol/L (98-107); GLUCOSE 124 mg/dL (74-106); SODIUM SERUM 142 mmol/L (136-145); UREA NITROGEN, BLOOD 8 mg/dL (7-18)
[2023-10-29 22:55] LABS: ALANINE AMINOTRANSFERASE 34 U/L (12-78); ALBUMIN 3.4 g/dL (3.4-5.0); ALCOHOL, BLOOD 367 mg/dL (0-10); ALKALINE PHOSPHATASE 135 U/L (46-116); ASPARTATE AMINOTRANSFERASE 23 U/L (15-37); BILIRUBIN,DIRECT 0.1 mg/dL (0.0-0.2); BILIRUBIN,TOTAL 0.2 mg/dL (0.2-1.0); TOTAL PROTEIN, SERUM 7.9 g/dL (6.4-8.2)
[2023-10-29 22:58] LABS: ACETAMINOPHEN <10 ug/ml (10-30); SALICYLATE 1.4 mg/dL (2.8-20.0)
[2023-10-30 00:07] LABS: APPEARANCE,URINE CLEAR (CLEAR); BILIRUBIN,URINE NEGATIVE (NEGATIVE); BLOOD, URINE NEGATIVE Ery/uL (NEGATIVE); COLOR,URINE YELLOW (YELLOW); KETONES,URINE TRACE mg/dL (NEGATIVE); LEUKOCYTE ESTERASE ,URINE NEGATIVE (NEGATIVE); NITRITE, URINE NEGATIVE (NEGATIVE); PH,URINE 5.5 (5.0-8.0); PROTEIN,URINE NEGATIVE (NEGATIVE); UGLUCOSE NEGATIVE (NEGATIVE); UROBILINOGEN,URINE 0.2 EU/dL (0.2)
[2023-10-30 00:22] LABS: AMPHETAMINE, URINE NEGATIVE (NEGATIVE); BARBITURATE, URINE NEGATIVE (NEGATIVE); BENZODIAZEPINE, URINE NEGATIVE (NEGATIVE); CANNABINOID, URINE NEGATIVE (NEGATIVE); COCCAINE, URINE NEGATIVE (NEGATIVE); OPIATE, URINE NEGATIVE (NEGATIVE); PHENCYCLIDINE SCREEN,URINE NEGATIVE (NEGATIVE)
[2023-10-30 03:54] VITALS: TEMP 98
[2023-10-31 07:03] VITALS: BP 114/72; O2SAT 96
== END 2023-10-31 07:04 | disposition home or self-care (01) ==
LOC: ER 21:32
DX: R45.851 Suicidal ideations (principal); R45.850 Homicidal ideations; F10.129 Alcohol abuse with intoxication, unspecified; I10 Essential (primary) hypertension; F20.9 Schizophrenia, unspecified; F19.10 Other psychoactive substance abuse, uncomplicated; Z60.2 Problems related to living alone; Z20.822 Contact with and (suspected) exposure to COVID-19; Y90.8 Blood alcohol level of 240 mg/100 ml or more
CPT/HCPCS: 99285; 96372 ×3; 85025; 80048; 80076; 81003; 36415 ×2; 80143; 80320 ×2; 80307; 87426; J2060; J1200; J1630; G0480